=== PATIENT | female | born 1965 | race Caucasian/White ===

== ENCOUNTER 2021-12-27 07:29 | Inpatient (IN) | payer OTHER ==
[~2021-12-27] VITALS: Ht 165.1 cm; Wt 83.0 kg
[2021-12-27 08:08] LABS: BASOPHILS % 0.2 % (0.0-2.0); EOSINOPHILS % 0.6 % (0.0-5.0); HEMATOCRIT. 36.5 % (36.0-48.0); HEMOGLOBIN. 11.8 g/dL (12.0-16.0); LYMPHOCYTES % 7.6 % (20.0-50.0); MEAN CORPUSCULAR HEMOGLOBIN 28.5 pg (28.0-32.0); MEAN PLATELET VOLUME 9.5 fl (7.4-10.4); MONOCYTES % 3.5 % (2.0-8.0); NEUTROPHILS % 88.1 % (40.0-76.0); PLATELET 261 x1000/uL (130-400); RED BLOOD CELL COUNT 4.15 mill/uL (4.2-5.4); RED CELL DISTRIBUTION WIDTH 14.1 % (11.6-14.6)
[2021-12-27 08:12] LABS: CHLORIDE 105 mEq/L (98-107)
[2021-12-27 08:14] LABS: PROTHROMBIN TIME 10.3 sec (9.6-11.0)
[2021-12-27 08:15] LABS: ETHANOL BLOOD < 10 mg/dL
[2021-12-27 09:34] LABS: CLARITY URINE CLEAR (CLEAR); COLOR URINE YELLOW (YELLOW); KETONES URINE 1+ (NEGATIVE); LEUKOCYTE ESTERASE URINE 2+ (NEGATIVE); NITRITE URINE NEGATIVE (NEGATIVE); OCCULT BLOOD URINE 1+ (NEGATIVE); PH URINE 7.5 (4.5-8.0); PROTEIN URINE 1+ (NEGATIVE); SPECIFIC GRAVITY URINE 1.045 (1.005-1.030); UROBILINOGEN URINE 0.2 E.U./dL (0.2-1.0)
[2021-12-27 10:02] LABS: *AMPHETAMINES SCREEN URINE NEGATIVE (NEGATIVE); *BARBITURATES SCREEN URINE NEGATIVE (NEGATIVE); *BENZODIAZEPINES SCREEN URINE NEGATIVE (NEGATIVE); *COCAINE SCREEN URINE NEGATIVE (NEGATIVE); METHADONE URINE SCREEN NEGATIVE (NEGATIVE); OPIATES URINE SCREEN PRESUMTIVE POSITIVE (NEGATIVE); PHENCYCLIDINE URINE SCREEN NEGATIVE (NEGATIVE)
[2021-12-27 10:03] LABS: CANNABINOID URINE SCREEN NEGATIVE (NEGATIVE)
[2021-12-27] MEDS ORDERED: IOHEXOL-350 100 ML BOTTLE ONE (12:57)
[2021-12-27 23:47] VITALS: BP 143/95
[2021-12-27] MEDS ORDERED: LEVO25TA7 MT (23:54)
[2021-12-27] MEDS ORDERED: CIPR500S3 PO (23:56)
[2021-12-27] MEDS ORDERED: TOPUD MT (23:57)
[2021-12-28] VITALS (7 sets, daily range): BP systolic 114–137; BP diastolic 59–82
[2021-12-28] MEDS ORDERED: ONDANSETRON HCL 4MG/2ML INJ IV PRN (07:15)
[2021-12-28] MEDS ORDERED: DOCUSATE SODIUM 100MG CAPSULE PO PRN (07:15)
[2021-12-28] MEDS ORDERED: IPRATROPIUM/ALBUTEROL 0.5-3(2.5)MG/3ML NEB NEB PRN (07:15)
[2021-12-28] MEDS ORDERED: ACETAMINOPHEN 325MG TABLET PO PRN (07:15)
[2021-12-28] MEDS ORDERED: GUAIFENESIN 200MG/10ML SUGAR FREE UDC PO PRN (07:15)
[2021-12-28] MEDS ORDERED: CLONIDINE 0.1MG TABLET PO PRN (07:15)
[2021-12-28] MEDS ORDERED: NITROGLYCERIN 0.4MG TABLET SL SL PRN (07:15)
[2021-12-28] MEDS ORDERED: KETOROLAC 15MG/ML VIAL IV PRN (07:15)
[2021-12-28] MEDS ORDERED: MAGNESIUM/ALUMINUM HYDROXIDE/SIMETHICONE 30ML UDC PO PRN (07:15)
[2021-12-28] MEDS ORDERED: CEFTRIAXONE 1 G PREMIX 50 ML IV SCH (07:30)
[2021-12-28] MEDS ORDERED: CLOPIDOGREL 75MG TABLET PO SCH (09:00)
[2021-12-28] MEDS: ENOXAPARIN 40MG/0.4ML SYR SUBCUT SCH (09:07)
[2021-12-28] MEDS: FAMOTIDINE 20MG TABLET PO SCH ×2 (09:08→20:53)
[2021-12-28 09:50] LABS: BASOPHILS % 0.5 % (0.0-2.0); EOSINOPHILS % 1.6 % (0.0-5.0); HEMATOCRIT. 36.6 % (36.0-48.0); HEMOGLOBIN. 12.2 g/dL (12.0-16.0); LYMPHOCYTES % 18.4 % (20.0-50.0); MEAN CORPUSCULAR HEMOGLOBIN 29.4 pg (28.0-32.0); MEAN CORPUSCULAR VOLUME 88.3 fL (81.0-99.0); MONOCYTES % 5.9 % (2.0-8.0); NEUTROPHILS % 73.6 % (40.0-76.0); RED BLOOD CELL COUNT 4.14 mill/uL (4.2-5.4); RED CELL DISTRIBUTION WIDTH 13.8 % (11.6-14.6)
[2021-12-28 09:55] LABS: CHLORIDE 107 mEq/L (98-107)
[2021-12-28] MEDS: LEVOFLOXACIN 500MG PREMIX 100 ML IV SCH (09:55)
[2021-12-28] MEDS: CEFTRIAXONE 1,000 MG in DEXTROSE 5% WATER 50 ML IV SCH (09:55)
[2021-12-28 10:04] LABS: T4 FREE 1.19 ng/dL (0.76-1.46)
[2021-12-28 10:18] LABS: FOLIC ACID (FOLATE) SERUM >20 ng/mL ng/mL (>5.38)
[2021-12-28 10:30] LABS: VITAMIN B12 SERUM >2000 pg/mL pg/mL (211-911)
[2021-12-28 10:55] LABS: PLATELET 249 x1000/uL (130-400)
[2021-12-28] MEDS ORDERED: POTASSIUM CHLORIDE 20MEQ TABLET SR PO NR (12:00)
[2021-12-28 17:16] LABS: CREATINE KINASE 28 IU/L (26-192)
[2021-12-28 17:17] LABS: CREATINE KINASE MB FRACTION < 1.0 ng/mL (0.5-3.6)
[2021-12-28] MEDS: ACETAMINOPHEN 325MG TABLET PO PRN (17:47)
[2021-12-28] MEDS ORDERED: ZOLPIDEM TARTRATE 5MG TABLET PO PRN (21:00)
[2021-12-28 23:37] LABS: CREATINE KINASE 17 IU/L (26-192)
[2021-12-28 23:38] LABS: CREATINE KINASE MB FRACTION < 1.0 ng/mL (0.5-3.6)
[2021-12-29] VITALS (7 sets, daily range): BP systolic 108–141; BP diastolic 60–75
[2021-12-29 07:32] LABS: BASOPHILS % 0.4 % (0.0-2.0); EOSINOPHILS % 2.5 % (0.0-5.0); HEMATOCRIT. 38.1 % (36.0-48.0); HEMOGLOBIN. 12.5 g/dL (12.0-16.0); LYMPHOCYTES % 30.9 % (20.0-50.0); MEAN CORPUSCULAR HEMOGLOBIN 28.8 pg (28.0-32.0); MEAN CORPUSCULAR VOLUME 87.9 fL (81.0-99.0); MEAN PLATELET VOLUME 8.4 fl (7.4-10.4); MONOCYTES % 9.3 % (2.0-8.0); NEUTROPHILS % 56.9 % (40.0-76.0); PLATELET 333 x1000/uL (130-400); RED BLOOD CELL COUNT 4.34 mill/uL (4.2-5.4); RED CELL DISTRIBUTION WIDTH 13.9 % (11.6-14.6)
[2021-12-29 07:48] LABS: CHLORIDE 110 mEq/L (98-107)
[2021-12-29 08:13] LABS: PHOSPHORUS 3.6 mg/dL (2.5-4.9)
[2021-12-29] MEDS ORDERED: FOLIC ACID 1MG TABLET PO SCH (09:00)
[2021-12-29] MEDS ORDERED: THIAMINE HCL 100MG TABLET PO SCH (09:00)
[2021-12-29] MEDS: CEFTRIAXONE 1,000 MG in DEXTROSE 5% WATER 50 ML IV SCH (09:25)
[2021-12-29] MEDS: FAMOTIDINE 20MG TABLET PO SCH ×2 (09:26→20:58)
[2021-12-29] MEDS: ENOXAPARIN 40MG/0.4ML SYR SUBCUT SCH (09:26)
[2021-12-29] MEDS: LEVOFLOXACIN 500MG PREMIX 100 ML IV SCH (11:18)
[2021-12-29] MEDS: ACETAMINOPHEN 325MG TABLET PO PRN ×2 (11:21→18:32)
[2021-12-29] MEDS ORDERED: ATORVASTATIN CALCIUM 10MG TABLET PO SCH (21:00)
== END 2021-12-29 21:39 | disposition short-term general hospital (02) | DRG 64 ==
LOC: ER 07:29 → EDBD 07:29 → MICUSO 08:53 → 5WST 21:36
PROVIDERS: ADMIT Internal Medicine; ATTEND Internal Medicine
DX: I63.512 Cerebral infarction due to unspecified occlusion or stenosis of left middle cerebral artery (principal); G92.8 Other toxic encephalopathy; E44.0 Moderate protein-calorie malnutrition; E87.1 Hypo-osmolality and hyponatremia; J98.11 Atelectasis; N39.0 Urinary tract infection, site not specified; G81.91 Hemiplegia, unspecified affecting right dominant side; I62.9 Nontraumatic intracranial hemorrhage, unspecified; R47.01 Aphasia; E07.9 Disorder of thyroid, unspecified; E87.5 Hyperkalemia; G51.0 Bell's palsy; F10.20 Alcohol dependence, uncomplicated; Y90.9 Presence of alcohol in blood, level not specified; I11.9 Hypertensive heart disease without heart failure; I51.3 Intracardiac thrombosis, not elsewhere classified; E78.00 Pure hypercholesterolemia, unspecified; R47.1 Dysarthria and anarthria; Z20.822 Contact with and (suspected) exposure to COVID-19; Z87.442 Personal history of urinary calculi; Z68.30 Body mass index [BMI] 30.0-30.9, adult
CPT/HCPCS: 36415; 70496; 70498; 70551; 71045; 80053; 80061; 80305; 80320; 81003; 82550; 82553; 82607; 82746; 83036; 83540; 83550; 83735; 84100; 84439; 84443; 84484; 85025; 87426; 93005; 93306; 93970; 97162; 97166; 97535; 99291; J0696; J1650; J1956; J7060; Q9967; G0480